=== PATIENT | male | born 1980 | race American Indian/Alaskan Native ===

== ENCOUNTER 2018-01-28 02:24 | Emergency (ER) | payer OTHER ==
[2018-01-28] MEDS ORDERED: Cyclobenzaprine 10 MG Tab PO ONE (02:25)
--- NOTE | 2018-01-28 03:07 | EDM.PDOC ---
ED HPI GENERAL MEDICAL PROBLEM - General Chief Complaint: Flank Pain Stated Complaint: SIDE/BACK PAIN [id number] Time Seen by Provider: 01/28/18 02:58 Source of Information: Reports: Patient History Limitations: Reports: No Limitations - History of Present Illness INITIAL COMMENTS - FREE TEXT/NARRATIVE: This 37 yo male patient reports to the ED with right flank pain. The patient reports his pain started on 01/27/18 in the morning and has been consistent since that time. The patient has not taken anything for temporary symptom relief. The patient also reports that he had 2 bowel movements on Sunday that were bloody. The patient reports that he has not had a bowel movement since Sunday. The patient denies any nausea or vomiting. Onset Date: 01/27/18 Duration: Constant Location: Reports: Back (right flank pain with movement) Quality: Reports: Ache, Dull, Throbbing Severity: Moderate Improves with: Reports: Rest Worsens with: Reports: Movement Right Flank Pain Score (Numeric/FACES): 6 - Related Data Allergies Allergy/AdvReac Type Severity Reaction Status Date / Time amoxicillin Allergy Hives Verified 01/28/18 02:36 Penicillins Allergy Hives Verified 01/28/18 02:36 Home Meds: Home Meds . [No Known Home Meds] 09/16/14 [History] Past Medical History - Past Health History Medical/Surgical History: Denies Medical/Surgical History - Infectious Disease History Infectious Disease History: Reports: Chicken Pox - Past Surgical History HEENT Surgical History: Reports: Tonsillectomy Social & Family History - Family History Family Medical History: Noncontributory - Tobacco Use Smoking Status *Q: Current Every Day Smoker Years of Tobacco use: 10 Packs/Tins Daily: 0.5 Second Hand Smoke Exposure: Yes - Caffeine Use Caffeine Use: Reports: Soda - Recreational Drug Use Recreational Drug Use: No ED ROS GENERAL - Review of Systems Review Of Systems: ROS reveals no pertinent complaints other than HPI. ED EXAM, RENAL/ - Physical Exam Exam: See Below Exam Limited By: No Limitations General Appearance: Alert, WD/WN, Mild Distress, Obese Eye Exam: Bilateral Eye: EOMI, Normal Inspection, PERRL Ears: Normal External Exam, Normal Canal, Hearing Grossly Normal, Normal TMs Nose: Normal Inspection, Normal Mucosa, No Blood Throat/Mouth: Normal Inspection, Normal Lips, Normal Teeth, Normal Gums, Normal Oropharynx, Normal Voice, No Airway Compromise Head: Atraumatic, Normocephalic Neck: Normal Inspection, Supple, Non-Tender, Full Range of Motion Respiratory/Chest: No Respiratory Distress, Lungs Clear, Normal Breath Sounds, No Accessory Muscle Use, Chest Non-Tender Cardiovascular: Normal Peripheral Pulses, Regular Rate, Rhythm, No Edema, No Gallop, No JVD, No Murmur, No Rub GI/Abdominal: Normal Bowel Sounds, Soft, Non-Tender, No Organomegaly, No Distention, No Abnormal Bruit, No Mass (Male) Exam: Deferred Rectal (Males) Exam: Deferred Back Exam: CVA Tenderness (R) Extremities: Normal Inspection, Normal Range of Motion, Non-Tender, Normal Capillary Refill, No Pedal Edema Neurological: Alert, Oriented, CN II-XII Intact, Normal Cognition, Normal Gait, Normal Reflexes, No Motor/Sensory Deficits Psychiatric: Normal Affect, Normal Mood Skin Exam: Warm, Dry, Intact, Normal Color, No Rash Lymphatic: No Adenopathy Course - Vital Signs Last Recorded V/S: Last Vital Signs Temp 36.8 C 01/28/18 02:37 Pulse 80 01/28/18 02:37 Resp 18 01/28/18 02:37 BP 137/85 01/28/18 02:37 Pulse Ox 98 01/28/18 02:37 - Orders/Labs/Meds Orders: Active Orders 24 hr Category Date Time Status Abdomen Pelvis wo Cont [CT] Urgent Exams 01/28/18 03:23 Ordered DRUG SCREEN URINE BIORAD [URCHEM] Stat Lab 01/28/18 02:56 Ordered UA W/MICROSCOPIC [URIN] Stat Lab 01/28/18 02:56 Ordered Labs: Laboratory Tests 01/28/18 01/28/18 01/28/18 Range/Units 03:05 03:05 03:09 WBC 11.3 H (5.0-10.0) 10^3/uL RBC 5.20 (4.6-6.2) 10^6/uL Hgb 15.2 (14.0-18.0) g/dL Hct 45.5 (40.0-54.0) % MCV 87.5 (80-100) fL MCH 29.2 (27.0-34.0) pg MCHC 33.4 (33.0-35.0) g/dL Plt Count 262 (150-450) 10^3/uL Neut % (Auto) 64.6 (42.2-75.2) % Lymph % (Auto) 24.8 (20.5-50.1) % Crenshaw % (Auto) 6.9 (2-8) % Eos % (Auto) 3.4 H (1.0-3.0) % Baso % (Auto) 0.3 (0.0-1.0) % Sodium (135-145) mmol/L Potassium (3.6-5.0) mmol/L Chloride (101-111) mmol/L Carbon Dioxide (21.0-31.0) mmol/L Anion Gap BUN (7-18) mg/dL Creatinine (0.6-1.3) mg/dL Est Cr Clr Drug Dosing mL/min Estimated GFR (MDRD) BUN/Creatinine Ratio Glucose (74-105) mg/dL Calcium (8.4-10.2) mg/dl Total Bilirubin (0.2-1.0) mg/dL AST (10-42) IU/L ALT (10-60) IU/L Alkaline Phosphatase (42-121) IU/L Total Protein (6.7-8.2) g/dl Albumin (3.2-5.5) g/dl Globulin Albumin/Globulin Ratio Urine Color Yellow (YELLOW) Urine Appearance Clear (CLEAR) Urine pH 6.0 (5.0-9.0) Ur Specific Secretary >= 1.030 (1.005-1.030) Urine Protein Negative (NEGATIVE) Urine Glucose (UA) Negative (NEGATIVE) Urine Ketones Negative (NEGATIVE) Urine Occult Blood Trace-intact H (NEGATIVE) Urine Nitrite Negative (NEGATIVE) Urine Bilirubin Negative (NEGATIVE) Urine Urobilinogen 0.2 (0.2-1.0) mg/dL Ur Leukocyte Esterase Negative (NEGATIVE) Urine RBC 0-5 /HPF Urine WBC 0-5 (0-5/HPF) /HPF Ur Epithelial Cells Rare /HPF Urine Bacteria Rare (0-FEW/HPF) /HPF Urine Mucus Few H /LPF Urine Opiates Screen Negative (NEGATIVE) Ur Oxycodone Screen Negative (NEGATIVE) Urine Methadone Screen Negative (NEGATIVE) Ur Barbiturates Screen Negative (NEGATIVE) U Tricyclic Antidepress Negative (NEGATIVE) Ur Phencyclidine Scrn Negative (NEGATIVE) Ur Amphetamine Screen Negative (NEGATIVE) U Methamphetamines Scrn Negative (NEGATIVE) Urine MDMA Screen Negative (NEGATIVE) U Benzodiazepines Scrn Negative (NEGATIVE) Urine Cocaine Screen Negative (NEGATIVE) U Marijuana (THC) Screen Negative (NEGATIVE) 01/28/18 Range/Units 03:09 WBC (5.0-10.0) 10^3/uL RBC (4.6-6.2) 10^6/uL Hgb (14.0-18.0) g/dL Hct (40.0-54.0) % MCV (80-100) fL MCH (27.0-34.0) pg MCHC (33.0-35.0) g/dL Plt Count (150-450) 10^3/uL Neut % (Auto) (42.2-75.2) % Lymph % (Auto) (20.5-50.1) % Crenshaw % (Auto) (2-8) % Eos % (Auto) (1.0-3.0) % Baso % (Auto) (0.0-1.0) % Sodium 140 (135-145) mmol/L Potassium 3.5 L (3.6-5.0) mmol/L Chloride 109 (101-111) mmol/L Carbon Dioxide 23.0 (21.0-31.0) mmol/L Anion Gap 11.5 BUN 20 H (7-18) mg/dL Creatinine 0.9 (0.6-1.3) mg/dL Est Cr Clr Drug Dosing 116.03 mL/min Estimated GFR (MDRD) > 60 BUN/Creatinine Ratio 22.22 Glucose 146 H (74-105) mg/dL Calcium 9.0 (8.4-10.2) mg/dl Total Bilirubin 0.3 (0.2-1.0) mg/dL AST 19 (10-42) IU/L ALT 19 (10-60) IU/L Alkaline Phosphatase 106 (42-121) IU/L Total Protein 7.4 (6.7-8.2) g/dl Albumin 3.9 (3.2-5.5) g/dl Globulin 3.5 Albumin/Globulin Ratio 1.11 Urine Color (YELLOW) Urine Appearance (CLEAR) Urine pH (5.0-9.0) Ur Specific Secretary (1.005-1.030) Urine Protein (NEGATIVE) Urine Glucose (UA) (NEGATIVE) Urine Ketones (NEGATIVE) Urine Occult Blood (NEGATIVE) Urine Nitrite (NEGATIVE) Urine Bilirubin (NEGATIVE) Urine Urobilinogen (0.2-1.0) mg/dL Ur Leukocyte Esterase (NEGATIVE) Urine RBC /HPF Urine WBC (0-5/HPF) /HPF Ur Epithelial Cells /HPF Urine Bacteria (0-FEW/HPF) /HPF Urine Mucus /LPF Urine Opiates Screen (NEGATIVE) Ur Oxycodone Screen (NEGATIVE) Urine Methadone Screen (NEGATIVE) Ur Barbiturates Screen (NEGATIVE) U Tricyclic Antidepress (NEGATIVE) Ur Phencyclidine Scrn (NEGATIVE) Ur Amphetamine Screen (NEGATIVE) U Methamphetamines Scrn (NEGATIVE) Urine MDMA Screen (NEGATIVE) U Benzodiazepines Scrn (NEGATIVE) Urine Cocaine Screen (NEGATIVE) U Marijuana (THC) Screen (NEGATIVE) Meds: Medications Discontinued Medications Generic Name Dose Route Start Last Admin Trade Name Freq PRN Reason Stop Dose Admin Sodium Chloride 1,000 mls @ 999 mls/hr 01/28/18 03:27 01/28/18 03:37 Normal Saline IV 01/28/18 04:27 999 mls/hr .BOLUS ONE Administration Ketorolac Tromethamine 30 mg 01/28/18 05:01 Toradol IVPUSH 01/28/18 05:02 ONETIME ONE Departure - Departure Time of Disposition: 05:07 Disposition: Home, Self-Care 01 Condition: Fair Clinical Impression: Low back strain Qualifiers: Encounter type: initial encounter Qualified Code(s): S39.012A - Strain of muscle, fascia and tendon of lower back, initial encounter - Discharge Information Instructions: Low Back Sprain Forms: ED Department Discharge Care Plan Goals: The patient was advised of the examination, lab and CT results during the visit. The patient was given an IV dose of Toradol. The patient was discharged with a Flexeril (10 mg) #1 to take at bedtime. The patient was also given a script for Toradol (10 mg) #20 to take 1 by mouth every 6 hours and Flexeril ( 10 mg) #10 to take 1 by mouth at bedtime as needed. If the patient has any additional symptoms or concerns, the patient should follow-up with his primary care facility or return to the emergency department. - My Orders Last 24 Hours: My Active Orders 01/28/18 02:56 DRUG SCREEN URINE BIORAD [URCHEM] Stat UA W/MICROSCOPIC [URIN] Stat 01/28/18 03:23 Abdomen Pelvis wo Cont [CT] Urgent - Assessment/Plan Last 24 Hours: My Active Orders 01/28/18 02:56 DRUG SCREEN URINE BIORAD [URCHEM] Stat UA W/MICROSCOPIC [URIN] Stat 01/28/18 03:23 Abdomen Pelvis wo Cont [CT] Urgent
[2018-01-28] MEDS ORDERED: Sodium Chloride 0.9% 1,000 ML IV ONE (03:27)
[2018-01-28 03:34] LABS: CHLORIDE,CL 109 mmol/L (101-111); SODIUM,NA 140 mmol/L (135-145)
[2018-01-28] MEDS ORDERED: Ketorolac 30 MG/ML SDV IVPUSH ONE (05:01)
[2018-01-28] MEDS ORDERED: Cyclobenzaprine 10 MG Tab ONE (05:35)
== END 2018-01-28 05:37 | disposition home or self-care (01) ==
LOC: DL.ED 02:24
DX: S39.012A Strain of muscle, fascia and tendon of lower back, initial encounter (principal); F17.210 Nicotine dependence, cigarettes, uncomplicated; Z88.0 Allergy status to penicillin; Z88.1 Allergy status to other antibiotic agents; Z87.891 Personal history of nicotine dependence; X58.XXXA Exposure to other specified factors, initial encounter
CPT/HCPCS: 36415; 74176; 80053; 80305; 81001; 85025; 96360; 99284; A9270; J1885; J7030

== ENCOUNTER 2018-06-10 21:37 | Emergency (ER) | payer OTHER ==
[2018-06-10] MEDS ORDERED: Sodium Chloride 0.9% 10 ML Syringe FLUSH PRN (21:57)
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
[2018-06-10 22:31] LABS: ANION GAP 9.5; CHLORIDE,CL 103 mmol/L (101-111); SODIUM,NA 136 mmol/L (135-145)
== END 2018-06-11 03:25 | disposition home or self-care (01) ==
LOC: DL.ED 21:37
DX: R07.9 Chest pain, unspecified (principal); F17.210 Nicotine dependence, cigarettes, uncomplicated; Z88.1 Allergy status to other antibiotic agents; Z88.0 Allergy status to penicillin
CPT/HCPCS: 36415; 71045; 80053; 84484; 85025; 85610; 93005; 99285; J7050

== ENCOUNTER 2019-08-26 22:39 | Emergency (ER) | payer BC, OTHER ==
[2019-08-26] MEDS ORDERED: Acetaminophen/HYDROcodone 325-10 MG Tab PO ONE (22:40)
[2019-08-26] MEDS ORDERED: Sodium Chloride 0.9% 1,000 ML IV ONE (22:58)
[2019-08-26] MEDS ORDERED: Iopamidol 612 MG/ML 100 ML Bottle IVPUSH ONE (23:26)
[2019-08-26 23:29] LABS: ANION GAP 11.5; CHLORIDE,CL 107 mmol/L (101-111); SODIUM,NA 138 mmol/L (135-145)
--- NOTE | 2019-08-26 23:39 | EDM.PDOC ---
ED HPI GENERAL MEDICAL PROBLEM - General Chief Complaint: Skin Complaint Stated Complaint: BOIL Time Seen by Provider: 08/26/19 22:55 Source of Information: Reports: Patient History Limitations: Reports: No Limitations - History of Present Illness INITIAL COMMENTS - FREE TEXT/NARRATIVE: ED with c/o boil on stomach draining. Noticed area on Sunday, greater in size tonight. Area popped and draining, increased pain. 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 "Borderline " diabeticNo known fevers. No nausea or vomiting. Suprapubic Pain Score (Numeric/FACES): 10 - Related Data Allergies Allergy/AdvReac Type Severity Reaction Status Date / Time amoxicillin Allergy Hives Verified 08/26/19 22:42 Penicillins Allergy Hives Verified 08/26/19 22:42 Home Meds: Home Meds . [No Known Home Meds] 09/16/14 [History] Past Medical History - Past Health History Medical/Surgical History: Denies Medical/Surgical History Endocrine/Metabolic History: Reports: Diabetes, Type II Other Endocrine/Metabolic History: Borderline DM - Infectious Disease History Infectious Disease History: Reports: Chicken Pox, MRSA - Past Surgical History HEENT Surgical History: Reports: Tonsillectomy Other Musculoskeletal Surgeries/Procedures:: right knee fracture. Left femur surgery Social & Family History - Family History Family Medical History: Noncontributory - Tobacco Use Smoking Status *Q: Current Every Day Smoker Years of Tobacco use: 25 Packs/Tins Daily: 0.5 - Caffeine Use Caffeine Use: Reports: Soda - Recreational Drug Use Recreational Drug Use: No ED ROS GENERAL - Review of Systems Review Of Systems: Comprehensive ROS is negative, except as noted in HPI. ED EXAM, SKIN/RASH Exam: See Below Exam Limited By: No Limitations General Appearance: Alert, Mild Distress, Obese Eye Exam: Bilateral Eye: EOMI Ears: Normal External Exam Nose: Normal Inspection Throat/Mouth: Normal Inspection Head: Atraumatic, Other Neck: Normal Inspection Respiratory/Chest: No Respiratory Distress, Lungs Clear Cardiovascular: Normal Peripheral Pulses, Regular Rate, Rhythm GI/Abdominal: Normal Bowel Sounds, Soft, Tender (lower mid) Extremities: Normal Range of Motion Neurological: Alert, Oriented Psychiatric: Normal Mood Skin: Warm, Wound/Incision (abscess mid loer abdomen at waist fold. 33 open area large amount thick brown drainage, Mild redness. Indurated area 2x2 cm. ) Course - Vital Signs Last Recorded V/S: Last Vital Signs Temp 99.5 F 08/27/19 01:00 Pulse 83 08/27/19 01:00 Resp 16 08/27/19 01:00 BP 115/52 L 08/27/19 01:00 Pulse Ox 97 08/27/19 01:00 - Orders/Labs/Meds Orders: Active Orders 24 hr Category Date Time Status Abdomen Pelvis w Cont [CT] Urgent Exams 08/26/19 23:26 Taken CULTURE WOUND + SMEAR [RM] Stat Lab 08/26/19 22:48 Results Labs: Laboratory Tests 08/26/19 08/26/19 08/26/19 Range/Units 23:00 23:00 23:00 WBC 16.1 H (5.0-10.0) 10^3/uL RBC 5.25 (4.6-6.2) 10^6/uL Hgb 15.6 (14.0-18.0) g/dL Hct 45.5 (40.0-54.0) % MCV 86.7 (80-100) fL MCH 29.7 (27.0-34.0) pg MCHC 34.3 (33.0-35.0) g/dL Plt Count 255 (150-450) 10^3/uL Neut % (Auto) 76.9 H (42.2-75.2) % Lymph % (Auto) 16.3 L (20.5-50.1) % [place] % (Auto) 6.0 (2-8) % Eos % (Auto) 0.6 L (1.0-3.0) % Baso % (Auto) 0.2 (0.0-1.0) % Sodium 138 (135-145) mmol/L Potassium 3.5 L (3.6-5.0) mmol/L Chloride 107 (101-111) mmol/L Carbon Dioxide 23.0 (21.0-31.0) mmol/L Anion Gap 11.5 BUN 17 (7-18) mg/dL Creatinine 1.1 (0.6-1.3) mg/dL Est Cr Clr Drug Dosing 94.02 mL/min Estimated GFR (MDRD) > 60 BUN/Creatinine Ratio 15.45 Glucose 126 H (74-105) mg/dL Lactic Acid 1.0 (0.5-2.2) mmol/L Calcium 8.7 (8.4-10.2) mg/dl Total Bilirubin 0.7 (0.2-1.0) mg/dL AST 17 (10-42) IU/L ALT 18 (10-60) IU/L Alkaline Phosphatase 92 (42-121) IU/L Total Protein 7.6 (6.7-8.2) g/dl Albumin 4.0 (3.2-5.5) g/dl Globulin 3.6 Albumin/Globulin Ratio 1.11 Meds: Medications Discontinued Medications Generic Name Dose Route Start Last Admin Trade Name Freq PRN Reason Stop Dose Admin Hydrocodone Bitart/Acetaminophen Confirm 08/27/19 00:40 08/27/19 00:47 [place] 325-10 Mg Administered 08/27/19 00:41 Not Given Dose 2 tab .ROUTE .STK-MED ONE Diphenhydramine HCl 25 mg 08/27/19 00:51 08/27/19 00:57 Benadryl PO 08/27/19 00:52 25 mg ONETIME ONE Administration Sodium Chloride 1,000 mls @ 999 mls/hr 08/26/19 22:58 08/26/19 23:04 Normal Saline IV 08/26/19 23:58 150 mls/hr .BOLUS ONE Administration Vancomycin HCl 1,500 mg/ 500 mls @ 333.333 mls/hr 08/26/19 22:58 08/26/19 23: 07 Sodium Chloride IV 08/27/19 00:27 333.333 mls/hr ONETIME ONE Administration Iopamidol 100 ml 08/26/19 23:26 Isovue-300 (61%) IVPUSH 08/26/19 23:27 ONETIME ONE Departure - Departure Time of Disposition: 23:46 Disposition: Home, Self-Care 01 Condition: Good Clinical Impression: Abscess - Discharge Information *PRESCRIPTION DRUG MONITORING PROGRAM REVIEWED*: No *COPY OF PRESCRIPTION DRUG MONITORING REPORT IN PATIENT MARIO ALBERTO: No Instructions: Skin Abscess Referrals: PCP,None [Ordering Only Provider] - Forms: ED Department Discharge Additional Instructions: doxycycline 100mg one twice daily for 10 days warm soak to area cover area with dressing follow up if increased redness, swelling , fever Follow up with Dr Johnson [phone] tylenol 650mg alternate with ibuprofen 600mg every 4 hours as needed for discomfort Sepsis Event Note - Evaluation Sepsis Screening Result: No Definite Risk - Focused Exam Vital Signs: Vital Signs Temp Pulse Resp BP Pulse Ox 08/27/19 01:00 99.5 F 83 16 115/52 L 97 08/26/19 22:51 99.8 F 103 H 20 119/84 98 Date Exam was Performed: 08/27/19 Time Exam was Performed: 01:47 - My Orders Last 24 Hours: My Active Orders 08/26/19 22:48 CULTURE WOUND + SMEAR [RM] Stat 08/26/19 23:26 Abdomen Pelvis w Cont [CT] Urgent - Assessment/Plan Last 24 Hours: My Active Orders 08/26/19 22:48 CULTURE WOUND + SMEAR [RM] Stat 08/26/19 23:26 Abdomen Pelvis w Cont [CT] Urgent
[2019-08-27] MEDS ORDERED: Acetaminophen/HYDROcodone 325-10 MG Tab ONE (00:40)
[2019-08-27] MEDS ORDERED: diphenhydrAMINE 25 MG Tab PO ONE (00:51)
== END 2019-08-27 01:07 | disposition home or self-care (01) ==
LOC: DL.ED 22:39
DX: L02.211 Cutaneous abscess of abdominal wall (principal); E11.9 Type 2 diabetes mellitus without complications; F17.210 Nicotine dependence, cigarettes, uncomplicated; Z88.0 Allergy status to penicillin
CPT/HCPCS: 36415; 74177; 80053; 83605; 85025; 87070; 87077; 87186; 87205; 96365; 96366; 99283; A9270; J3370; J7030; J7040; Q9967

== ENCOUNTER 2021-03-23 21:29 | Emergency (ER) | payer BC, OTHER ==
[2021-03-23] MEDS ORDERED: Doxycycline Monohydrate 100 MG Cap PO ONE (22:38)
--- NOTE | 2021-03-23 22:38 | EDM.PDOC ---
ED HPI GENERAL MEDICAL PROBLEM - General Chief Complaint: Skin Complaint Stated Complaint: LEFT SIDE IN MIDDLE WAIST, BOIL. PER PT Time Seen by Provider: 03/23/21 22:30 Source of Information: Reports: Patient History Limitations: Reports: No Limitations - History of Present Illness INITIAL COMMENTS - FREE TEXT/NARRATIVE: Boil on waistline Lower Abdomen Pain Score (Numeric/FACES): 7 - Related Data Allergies Allergy/AdvReac Type Severity Reaction Status Date / Time amoxicillin Allergy Hives Verified 08/26/19 22:42 Penicillins Allergy Hives Verified 08/26/19 22:42 Home Meds: Home Meds Aspirin 03/23/21 [History] Cholecalciferol (Vitamin D3) [Vitamin D] 03/23/21 [History] lisinopriL [Lisinopril] 03/23/21 [History] metFORMIN [Glucophage] 03/23/21 [History] Past Medical History - Past Health History Medical/Surgical History: Denies Medical/Surgical History HEENT History: Reports: None Cardiovascular History: Reports: None Respiratory History: Reports: None Gastrointestinal History: Reports: None Genitourinary History: Reports: None Neurological History: Reports: None Psychiatric History: Reports: None Endocrine/Metabolic History: Reports: Diabetes, Type II Other Endocrine/Metabolic History: Borderline DM Hematologic History: Reports: None Immunologic History: Reports: None Oncologic (Cancer) History: Reports: None - Infectious Disease History Infectious Disease History: Reports: Chicken Pox, MRSA - Past Surgical History Head Surgeries/Procedures: Reports: None HEENT Surgical History: Reports: Tonsillectomy Other Musculoskeletal Surgeries/Procedures:: right knee fracture. Left femur surgery Social & Family History - Family History Family Medical History: No Pertinent Family History - Tobacco Use Tobacco Use Status *Q: Current Every Day Tobacco User Years of Tobacco use: 15 Packs/Tins Daily: 0.2 - Caffeine Use Caffeine Use: Reports: Soda - Recreational Drug Use Recreational Drug Use: No ED ROS GENERAL - Review of Systems Review Of Systems: Comprehensive ROS is negative, except as noted in HPI. ED EXAM, SKIN/RASH Exam: See Below Exam Limited By: No Limitations General Appearance: Alert, No Apparent Distress Eye Exam: Bilateral Eye: EOMI Ears: Normal External Exam Throat/Mouth: Normal Oropharynx Head: Atraumatic, Normocephalic Respiratory/Chest: Normal Breath Sounds Cardiovascular: Regular Rate, Rhythm Extremities: Normal Range of Motion Neurological: Alert, Oriented, Normal Cognition Skin: Warm, Dry, Wound/Incision (abscess mid abdominal in fold, punctate center, no redness) ED SKIN PROCEDURES - I&D Skin Prep: Providone-Iodine (Betadine) Area Incised With: Needle Drainage: Purulent, Moderate Amount Probed to Break Up Loculations: No Sterile Dressinx4(s) Complications: No Course - Vital Signs Last Recorded V/S: Last Vital Signs Temp 98.4 F 03/23/21 21:43 Pulse 76 03/23/21 21:43 Resp 20 03/23/21 21:43 BP 122/67 03/23/21 21:43 Pulse Ox 99 03/23/21 21:43 Departure - Departure Time of Disposition: 22:40 Disposition: Home, Self-Care 01 Condition: Good Clinical Impression: Abscess - Discharge Information *PRESCRIPTION DRUG MONITORING PROGRAM REVIEWED*: No *COPY OF PRESCRIPTION DRUG MONITORING REPORT IN PATIENT MARIO ALBERTO: No Instructions: Skin Abscess Additional Instructions: warm soak twice daily keep area clean and dry cover with dressing if draining Clinic recheck sunday Follow up if redness swelling or fever doxycycline 100mg one twice daily x 10 days Sepsis Event Note (ED) - Evaluation Sepsis Screening Result: No Definite Risk - Focused Exam Vital Signs: Vital Signs Temp Pulse Resp BP Pulse Ox 03/23/21 21:43 98.4 F 76 20 122/67 99
== END 2021-03-23 22:47 | disposition home or self-care (01) ==
LOC: DL.ED 21:29
DX: L02.211 Cutaneous abscess of abdominal wall (principal); Z72.0 Tobacco use; E11.9 Type 2 diabetes mellitus without complications; Z79.82 Long term (current) use of aspirin; Z79.84 Long term (current) use of oral hypoglycemic drugs; Z88.0 Allergy status to penicillin
CPT/HCPCS: 10060; 99282; A9270; 99283

== ENCOUNTER 2021-05-13 21:07 | Emergency (ER) | payer BC, OTHER ==
[2021-05-13] MEDS ORDERED: cefTRIAXone 250 MG, Lidocaine 1% 0.9 ML IM ONE ×2 (21:24)
[2021-05-13] MEDS ORDERED: Azithromycin 250 MG Tab PO ONE (21:24)
--- NOTE | 2021-05-13 21:26 | EDM.PDOC ---
ED HPI GENERAL MEDICAL PROBLEM - General Chief Complaint: Genitourinary Problem Stated Complaint: PAIN IN LOWER REGION... Time Seen by Provider: 05/13/21 21:20 - History of Present Illness INITIAL COMMENTS - FREE TEXT/NARRATIVE: Pt is here for possible STD. He had intercourse with someone on Sunday who told him that she was tested and clean so he did not use protection. He was tested yesterday at the clinic, but has not heard the results. Today, he started to get more burning and discomfort at the tip of his penis and pressure so he has to urinate. He denies any warts or lesions in his private area. No testicular pain or lower abdominal pain. He has not had this before. Onset: Today - Related Data Allergies Allergy/AdvReac Type Severity Reaction Status Date / Time amoxicillin Allergy Hives Verified 08/26/19 22:42 Penicillins Allergy Hives Verified 08/26/19 22:42 Home Meds: Home Meds Aspirin 03/23/21 [History] Cholecalciferol (Vitamin D3) [Vitamin D] 03/23/21 [History] lisinopriL [Lisinopril] 03/23/21 [History] metFORMIN [Glucophage] 03/23/21 [History] Past Medical History - Past Health History Medical/Surgical History: Denies Medical/Surgical History HEENT History: Reports: None Cardiovascular History: Reports: None Respiratory History: Reports: None Gastrointestinal History: Reports: None Genitourinary History: Reports: None Neurological History: Reports: None Psychiatric History: Reports: None Endocrine/Metabolic History: Reports: Diabetes, Type II Other Endocrine/Metabolic History: Borderline DM Hematologic History: Reports: None Immunologic History: Reports: None Oncologic (Cancer) History: Reports: None - Infectious Disease History Infectious Disease History: Reports: Chicken Pox, MRSA - Past Surgical History Head Surgeries/Procedures: Reports: None HEENT Surgical History: Reports: Tonsillectomy Other Musculoskeletal Surgeries/Procedures:: right knee fracture. Left femur surgery Social & Family History - Family History Family Medical History: No Pertinent Family History - Caffeine Use Caffeine Use: Reports: Soda ED ROS GENERAL - Review of Systems Review Of Systems: Comprehensive ROS is negative, except as noted in HPI. ED EXAM, RENAL/ - Physical Exam Exam: See Below Exam Limited By: No Limitations General Appearance: Alert, WD/WN, No Apparent Distress Eye Exam: Bilateral Eye: Normal Inspection Ears: Normal External Exam Throat/Mouth: Normal Voice, No Airway Compromise Head: Atraumatic, Normocephalic Neck: Supple, Non-Tender Respiratory/Chest: No Respiratory Distress, Lungs Clear, Normal Breath Sounds, No Accessory Muscle Use Cardiovascular: Normal Peripheral Pulses, Regular Rate, Rhythm, No Murmur GI/Abdominal: Soft, Non-Tender (Male) Exam: Deferred (by pt) Rectal (Males) Exam: Deferred Back Exam: Normal Inspection, Full Range of Motion Extremities: Normal Inspection, Normal Range of Motion, No Pedal Edema Neurological: Alert, Oriented, Normal Cognition, No Motor/Sensory Deficits Psychiatric: Normal Affect, Normal Mood Skin Exam: Warm, Dry, Intact, Normal Color, No Rash Course - Re-Assessments/Exams Free Text/Narrative Re-Assessment/Exam: Reviewed labs with pt and . Pt feeling better after IV fluids and is ready to go home. CT head and CXR were unremarkable. 05/13/21 22:26 Departure - Departure Time of Disposition: 22:24 Disposition: Home, Self-Care 01 Condition: Good Clinical Impression: Dehydration - Discharge Information *PRESCRIPTION DRUG MONITORING PROGRAM REVIEWED*: Not Applicable *COPY OF PRESCRIPTION DRUG MONITORING REPORT IN PATIENT MARIO ALBERTO: Not Applicable Instructions: Dehydration, Adult, [id number]-sm-[id number] Forms: ED Department Discharge Additional Instructions: If symptoms return or worsen, call/return to the ER Keep upcoming appointments with your specialists Follow up with your primary care provider in 3-5 days.
== END 2021-05-13 22:43 | disposition home or self-care (01) ==
LOC: DL.ED 21:07
DX: E86.0 Dehydration (principal); E11.9 Type 2 diabetes mellitus without complications; Z88.0 Allergy status to penicillin; Z79.82 Long term (current) use of aspirin; Z79.84 Long term (current) use of oral hypoglycemic drugs; Z79.899 Other long term (current) drug therapy
CPT/HCPCS: 81003; 96372; 99283; A9270-GY; J0696

== ENCOUNTER 2021-06-20 15:55 | Emergency (ER) | payer BC, OTHER ==
[2021-06-20] MEDS ORDERED: Sodium Chloride 0.9% 10 ML Syringe FLUSH PRN ×2 (17:21→18:29)
[2021-06-20 17:51] LABS: AMPHETAMINES,URINE NEGATIVE (NEGATIVE); BARBITURATES,URINE NEGATIVE (NEGATIVE); BENZODIAZEPINE,URINE NEGATIVE (NEGATIVE); MDMA (ECSTASY), URINE NEGATIVE (NEGATIVE); METHADONE,URINE NEGATIVE (NEGATIVE); METHAMPHETAMINES,URINE NEGATIVE (NEGATIVE); OPIATES,URINE NEGATIVE (NEGATIVE); OXYCODONE,URINE NEGATIVE (NEGATIVE); PHENCYCLIDINE,URINE NEGATIVE (NEGATIVE); TCA,URINE NEGATIVE (NEGATIVE)
[2021-06-20 18:03] LABS: ANION GAP 15.6 mEq/L (7-13); CHLORIDE,CL 105 mmol/L (98-107); SODIUM,NA 141 mmol/L (136-145)
--- NOTE | 2021-06-20 18:03 | EDM.PDOC ---
<Yusuf Morales Ansley - Last Filed: 06/20/21 18:47> ED HPI GENERAL MEDICAL PROBLEM - General Chief Complaint: Abdominal Pain Stated Complaint: GALLBLADDER INFLAMATION Time Seen by Provider: 06/20/21 17:25 Source of Information: Reports: Patient History Limitations: Reports: No Limitations - History of Present Illness INITIAL COMMENTS - FREE TEXT/NARRATIVE: 40 y/o M c/o upper abd pn, 3/10, sharp in nature diffuse over the upper abd, 6/10 and worse when tries to sit up. No trauma to the area. Pn started Sunday. No pain after eating. He denies sweating, NV, fever, cough, chills, drugs, etoh, cp, db, pelvic pn, extremity pn, constipation, difficulty voiding Duration: Day(s): Location: Reports: Abdomen Quality: Reports: Sharp Upper Abdomen Pain Score (Numeric/FACES): 2 - Related Data Allergies Allergy/AdvReac Type Severity Reaction Status Date / Time amoxicillin Allergy Hives Verified 06/20/21 17:19 Penicillins Allergy Hives Verified 06/20/21 17:19 Home Meds: Home Meds Aspirin 81 mg PO DAILY 03/23/21 [History] Cholecalciferol (Vitamin D3) [Vitamin D] 25 mcg PO DAILY 03/23/21 [History] lisinopriL [Lisinopril] 5 mg PO DAILY 03/23/21 [History] metFORMIN [Glucophage] 500 mg PO DAILY 03/23/21 [History] Albuterol Sulfate [Proair Hfa] 2 puff IH .Q4-6H PRN 06/20/21 [History] Famotidine 20 mg PO BID 06/20/21 [History] Hydrophilic Ointment [Aquaphilic Ointment] 1 gm TOP DAILY 06/20/21 [History] Sennosides/Docusate Sodium [Docusate Sodium-Sennosides Tab] 1 each PO DAILY 06/20/21 [History] Sildenafil Citrate [Viagra] 100 mg PO ASDIRECTED 06/20/21 [History] Past Medical History - Past Health History Medical/Surgical History: Denies Medical/Surgical History HEENT History: Reports: None Cardiovascular History: Reports: None Respiratory History: Reports: None Gastrointestinal History: Reports: GERD Genitourinary History: Reports: None, STD Other Genitourinary History: possible std exposure Neurological History: Reports: None Psychiatric History: Reports: None Endocrine/Metabolic History: Reports: Diabetes, Type II Other Endocrine/Metabolic History: Borderline DM Hematologic History: Reports: None Immunologic History: Reports: None Oncologic (Cancer) History: Reports: None - Infectious Disease History Infectious Disease History: Reports: Chicken Pox, MRSA - Past Surgical History Head Surgeries/Procedures: Reports: None HEENT Surgical History: Reports: Tonsillectomy Other Musculoskeletal Surgeries/Procedures:: right knee fracture. Left femur surgery Social & Family History - Family History Family Medical History: No Pertinent Family History - Tobacco Use Tobacco Use Status *Q: Current Every Day Tobacco User Years of Tobacco use: 25 Packs/Tins Daily: 0.5 - Caffeine Use Caffeine Use: Reports: None - Recreational Drug Use Recreational Drug Use: No ED ROS GENERAL - Review of Systems Review Of Systems: Comprehensive ROS is negative, except as noted in HPI. ED EXAM, GI/ABD - Physical Exam Exam: See Below General Appearance: Alert, No Apparent Distress Throat/Mouth: Normal Inspection, Normal Lips, Normal Teeth, Normal Gums, Normal Oropharynx, Normal Voice, No Airway Compromise Head: Atraumatic, Normocephalic Neck: Normal Inspection, Supple, Non-Tender, Full Range of Motion Respiratory/Chest: No Respiratory Distress, Lungs Clear, Normal Breath Sounds, No Accessory Muscle Use, Chest Non-Tender Cardiovascular: Normal Peripheral Pulses, Regular Rate, Rhythm, No Edema, No Gallop, No JVD, No Murmur, No Rub GI/Abdominal Exam: Soft, Tender (tender upper quadrants positive murphys sign) (Male) Exam: Deferred Rectal (Males) Exam: Deferred Back Exam: Normal Inspection, Full Range of Motion, NT Extremities: Normal Inspection, Normal Range of Motion, Non-Tender, Normal Capillary Refill, No Pedal Edema Neurological: Alert, Oriented, CN II-XII Intact, Normal Cognition, Normal Gait, Normal Reflexes, No Motor/Sensory Deficits Psychiatric: Normal Affect, Normal Mood Course - Re-Assessments/Exams Free Text/Narrative Re-Assessment/Exam: 06/20/21 18:47 care taken over by Sherine Vásquez NP at shift change Departure - Departure Disposition: Home, Self-Care 01 Clinical Impression: Hiatal hernia, Fatty liver Constipation Qualifiers: Constipation type: slow transit constipation Qualified Code(s): K59.01 - Slow transit constipation Hyperglycemia due to type 2 diabetes mellitus Qualifiers: Diabetes mellitus snf insulin use: without snf use Qualified Code(s): E11.65 - Type 2 diabetes mellitus with hyperglycemia - Discharge Information Instructions: Hernia, Adult, Constipation, Adult Referrals: PCP,None [Primary Care Provider] - Forms: ED Department Discharge Additional Instructions: 1.) You may take MiraLAX, or similar product tonight as well as tomorrow morning should you not experience results. 2.) Increase water intake. 3.) Increase fresh fruit/vegetable and fiber intake. 4.) Consider taking a stool softener daily should constipation be a regular occurrence despite dietary changes. 5.) Follow up with your primary care provider regarding today's visit. <Lakeisha Alatorre - Last Filed: 06/21/21 02:16> Course - Vital Signs Last Recorded V/S: Last Vital Signs Temp 98.9 F 06/20/21 20:30 Pulse 78 06/20/21 20:30 Resp 20 06/20/21 20:30 BP 128/75 06/20/21 20:30 Pulse Ox 97 06/20/21 20:30 - Orders/Labs/Meds Orders: Active Orders 24 hr Category Date Time Status Peripheral IV Insertion Adult [OM.PC] Routine Oth 06/20/21 17:20 Ordered Peripheral IV Insertion Adult [OM.PC] Routine Oth 06/20/21 18:29 Ordered Labs: Laboratory Tests 06/20/21 06/20/21 06/20/21 Range/Units 17:30 17:30 17:30 WBC 11.0 H (5.0-10.0) 10^3/uL RBC 5.18 (4.6-6.2) 10^6/uL Hgb 15.2 (14.0-18.0) g/dL Hct 45.5 (40.0-54.0) % MCV 87.8 (80-100) fL MCH 29.3 (27.0-34.0) pg MCHC 33.4 (33.0-35.0) g/dL Plt Count 297 (150-450) 10^3/uL Neut % (Auto) 67.3 (42.2-75.2) % Lymph % (Auto) 23.8 (20.5-50.1) % [place] % (Auto) 6.6 (2-8) % Eos % (Auto) 2.1 (1.0-3.0) % Baso % (Auto) 0.2 (0.0-1.0) % Sodium 141 (136-145) mmol/L Potassium 3.6 (3.5-5.1) mmol/L Chloride 105 (98-107) mmol/L Carbon Dioxide 24 (21-32) mmol/L Anion Gap 15.6 H (7-13) mEq/L BUN 17 (7-18) mg/dL Creatinine 1.10 (0.70-1.30) mg/dL Est Cr Clr Drug Dosing 92.17 mL/min Estimated GFR (MDRD) > 60 BUN/Creatinine Ratio 15.5 (No establ ref range) Glucose 115 H (70-99) mg/dL Lactic Acid 0.8 (0.4-2.0) mmol/L Calcium 8.9 (8.5-10.1) mg/dL Phosphorus 3.6 (2.6-4.7) mg/dL Total Bilirubin 0.3 (0.2-1.0) mg/dL AST 14 L (15-37) U/L ALT 35 (16-63) U/L Alkaline Phosphatase 113 (46-116) U/L Total Protein 8.2 (6.4-8.2) g/dL Albumin 4.0 (3.4-5.0) g/dL Globulin 4.2 Albumin/Globulin Ratio 1.0 Amylase 27 (25-115) U/L Lipase 98 (73-393) U/L TSH, Ultra Sensitive 1.70 (0.36-3.74) uIU/mL Urine Color (YELLOW) Urine Appearance (CLEAR) Urine pH (5.0-9.0) Ur Specific [place] (1.005-1.030) Urine Protein (NEGATIVE) Urine Glucose (UA) (NEGATIVE) Urine Ketones (NEGATIVE) Urine Occult Blood (NEGATIVE) Urine Nitrite (NEGATIVE) Urine Bilirubin (NEGATIVE) Urine Urobilinogen (0.2-1.0) mg/dL Ur Leukocyte Esterase (NEGATIVE) Urine Opiates Screen (NEGATIVE) Ur Oxycodone Screen (NEGATIVE) Urine Methadone Screen (NEGATIVE) Ur Barbiturates Screen (NEGATIVE) U Tricyclic Antidepress (NEGATIVE) Ur Phencyclidine Scrn (NEGATIVE) Ur Amphetamine Screen (NEGATIVE) U Methamphetamines Scrn (NEGATIVE) Urine MDMA Screen (NEGATIVE) U Benzodiazepines Scrn (NEGATIVE) Urine Cocaine Screen (NEGATIVE) U Marijuana (THC) Screen (NEGATIVE) SARS-CoV-2 RNA (MARTÍN) (NEGATIVE) 06/20/21 06/20/21 06/20/21 Range/Units 17:35 17:35 18:04 WBC (5.0-10.0) 10^3/uL RBC (4.6-6.2) 10^6/uL Hgb (14.0-18.0) g/dL Hct (40.0-54.0) % MCV (80-100) fL MCH (27.0-34.0) pg MCHC (33.0-35.0) g/dL Plt Count (150-450) 10^3/uL Neut % (Auto) (42.2-75.2) % Lymph % (Auto) (20.5-50.1) % [place] % (Auto) (2-8) % Eos % (Auto) (1.0-3.0) % Baso % (Auto) (0.0-1.0) % Sodium (136-145) mmol/L Potassium (3.5-5.1) mmol/L Chloride (98-107) mmol/L Carbon Dioxide (21-32) mmol/L Anion Gap (7-13) mEq/L BUN (7-18) mg/dL Creatinine (0.70-1.30) mg/dL Est Cr Clr Drug Dosing mL/min Estimated GFR (MDRD) BUN/Creatinine Ratio (No establ ref range) Glucose (70-99) mg/dL Lactic Acid (0.4-2.0) mmol/L Calcium (8.5-10.1) mg/dL Phosphorus (2.6-4.7) mg/dL Total Bilirubin (0.2-1.0) mg/dL AST (15-37) U/L ALT (16-63) U/L Alkaline Phosphatase (46-116) U/L Total Protein (6.4-8.2) g/dL Albumin (3.4-5.0) g/dL Globulin Albumin/Globulin Ratio Amylase (25-115) U/L Lipase (73-393) U/L TSH, Ultra Sensitive (0.36-3.74) uIU/mL Urine Color Yellow (YELLOW) Urine Appearance Slightly cloudy (CLEAR) Urine pH 5.5 (5.0-9.0) Ur Specific [place] >= 1.030 (1.005-1.030) Urine Protein Negative (NEGATIVE) Urine Glucose (UA) Negative (NEGATIVE) Urine Ketones Negative (NEGATIVE) Urine Occult Blood Negative (NEGATIVE) Urine Nitrite Negative (NEGATIVE) Urine Bilirubin Small H (NEGATIVE) Urine Urobilinogen 1.0 (0.2-1.0) mg/dL Ur Leukocyte Esterase Negative (NEGATIVE) Urine Opiates Screen Negative (NEGATIVE) Ur Oxycodone Screen Negative (NEGATIVE) Urine Methadone Screen Negative (NEGATIVE) Ur Barbiturates Screen Negative (NEGATIVE) U Tricyclic Antidepress Negative (NEGATIVE) Ur Phencyclidine Scrn Negative (NEGATIVE) Ur Amphetamine Screen Negative (NEGATIVE) U Methamphetamines Scrn Negative (NEGATIVE) Urine MDMA Screen Negative (NEGATIVE) U Benzodiazepines Scrn Negative (NEGATIVE) Urine Cocaine Screen Negative (NEGATIVE) U Marijuana (THC) Screen Negative (NEGATIVE) SARS-CoV-2 RNA (MARTÍN) Negative (NEGATIVE) Meds: Medications Discontinued Medications Generic Name Dose Route Start Last Admin Trade Name Freq PRN Reason Stop Dose Admin Iopamidol 100 ml 06/20/21 18:29 06/20/21 19:04 Iopamidol 612 Mg/Ml 100 Ml Bottle IVPUSH 06/20/21 18:30 100 ml ONETIME ONE Administration Ondansetron HCl 4 mg 06/20/21 18:43 06/20/21 18:43 Ondansetron 4 Mg/2 Ml Sdv IVPUSH 06/20/21 18:44 Not Given ONETIME ONE Sodium Chloride 10 ml 06/20/21 17:21 Sodium Chloride 0.9% 10 Ml Syringe FLUSH ASDIRECTED PRN Keep Vein Open Sodium Chloride 10 ml 06/20/21 18:29 Sodium Chloride 0.9% 10 Ml Syringe FLUSH ASDIRECTED PRN Keep Vein Open - Radiology Interpretation Free Text/Narrative:: [facility] Final Radiology Report Call: [phone] assistance Online chat: [email or web address] Name: TYSON CRUZ Age: 40Years M Date: 06/20/2021 SSN: -- : [id number] Study: CT ABDOMEN PELVIS W CONT Requesting Physician: Yusuf Morales Images: 520 Addl Studies: Provided Clinical History: abd pn Contrast: With Contrast Medium: Isovue 300 Contrast Amount: 100 mL Contrast Method: Intravenous (IV) Page 1 of 2 PROCEDURE INFORMATION: Exam: CT Abdomen And Pelvis With Contrast Exam date and time: 06/20/2021 6:40 PM Age: 40 years old Clinical indication: Other: Upper abd pain bilaterally; Additional info: Abd pn TECHNIQUE: Imaging protocol: Computed tomography of the abdomen and pelvis with contrast. Total images: 520 Radiation optimization: All CT scans at this facility use at least one of these dose optimization techniques: automated exposure control; mA and/or kV adjustment per patient size (includes targeted exams where dose is matched to clinical indication); or iterative reconstruction. Contrast material: ISOVUE 300; Contrast volume: 100 ml; Contrast route: INTRAVENOUS (IV); COMPARISON: CT Abdomen Pelvis w Cont 08/26/2019 11:34 PM FINDINGS: Lungs: Visualized lung bases are clear. Heart: Heart size normal. Mediastinal space: The visualized distal esophagus is largely contracted without gross abnormality. Small fatty hiatal hernia unchanged. Liver: Mild fatty infiltration of the liver. Normal contour. No mass lesions. No intrahepatic biliary ductal dilatation. Gallbladder and bile ducts: Normal. No calcified stones. No ductal dilation. Pancreas: Normal. No inflammatory changes or ductal dilation. Spleen: Normal. No splenomegaly. Adrenal glands: Normal. No adrenal mass. Kidneys and ureters: No acute abnormalities. No hydronephrosis or hydroureter. No urinary tract stones are identified. There is a low-density circumscribed left renal cortical lesion suggesting renal cyst. No further imaging evaluation is required. Stomach and bowel: The stomach is largely contracted without gross abnormality. The small bowel is nondilated with no gross abnormality. Motion artifact limits the small bowel assessment in the lower abdomen. There is a moderate amount of stool distributed throughout the colon suggesting constipation. Appendix: The appendix is not identified. No gross secondary changes of acute appendicitis although motion artifact limits the assessment at the level of the cecum. Intraperitoneal space: No free fluid or air. Vasculature: Mild atherosclerotic aortoiliac calcification without aneurysm. Lymph nodes: No adenopathy. Urinary bladder: The urinary bladder is largely contracted without gross abnorm ality. Reproductive: Borderline mild prostate enlargement. Bones/joints: No acute osseous abnormalities. 10 mm right supra-acetabular bone island unchanged. Soft tissues: Unremarkable. IMPRESSION: 1. There is a moderate amount of stool distributed throughout the colon suggesting constipation. 2. Small fatty hiatal hernia unchanged. 3. Fatty liver. 4. Motion artifact produces mild-moderate exam limitation. 5. Additional nonemergent findings detailed above. COMMENTS: Consistent with the [place] [employer]'s Incidental Findings Committee white paper (J Am Karena Radiol 2018): Any incidental renal lesion less than 1 cm or classified as too small to characterize, or any incidental cystic renal lesion characterized as simple- appearing, is likely benign. No follow-up imaging is recommended for these lesions per consensus recommendations based on imaging criteria. Thank you for allowing us to participate in the care of your patient. Dictated and Authenticated by: Pablo Burgos MD 06/20/2021 8:16 PM Central Time ([place] & [place]) - Re-Assessments/Exams Free Text/Narrative Re-Assessment/Exam: 06/20/21 Care of patient assumed by proposal manager writer from Yusuf Morales PA-C at 1900. Findings of imaging and lab work reviewed with patient. Discussed supportive cares for constipation as well as red flag signs and symptoms which would warrant immediate reevaluation. Patient instructed to follow up with PCP in 5-7 days, or sooner as needed. Patient verbalized understanding and agreement with the plan of care. Departure - Departure Time of Disposition: 20:32 Condition: Good - Discharge Information *PRESCRIPTION DRUG MONITORING PROGRAM REVIEWED*: Not Applicable *COPY OF PRESCRIPTION DRUG MONITORING REPORT IN PATIENT MARIO ALBERTO: Not Applicable Sepsis Event Note (ED) - Focused Exam Vital Signs: Vital Signs Temp Pulse Resp BP Pulse Ox 06/20/21 20:30 98.9 F 78 20 128/75 97 06/20/21 17:19 98.0 F 78 18 133/81 97
[2021-06-20] MEDS ORDERED: Iopamidol 612 MG/ML 100 ML Bottle IVPUSH ONE (18:29)
[2021-06-20] MEDS ORDERED: Ondansetron 4 MG/2 ML SDV IVPUSH ONE (18:43)
--- NOTE | 2021-06-20 20:17 | CT ---
PROCEDURE INFORMATION: Exam: CT Abdomen And Pelvis With Contrast Exam date and time: 06/20/2021 6:40 PM Age: 40 years old Clinical indication: Other: Upper abd pain bilaterally; Additional info: Abd pn TECHNIQUE: Imaging protocol: Computed tomography of the abdomen and pelvis with contrast. Total images: 520 Radiation optimization: All CT scans at this facility use at least one of these dose optimization techniques: automated exposure control; mA and/or kV adjustment per patient size (includes targeted exams where dose is matched to clinical indication); or iterative reconstruction. Contrast material: ISOVUE 300; Contrast volume: 100 ml; Contrast route: INTRAVENOUS (IV); COMPARISON: CT Abdomen Pelvis w Cont 08/26/2019 11:34 PM FINDINGS: Lungs: Visualized lung bases are clear. Heart: Heart size normal. Mediastinal space: The visualized distal esophagus is largely contracted without gross abnormality. Small fatty hiatal hernia unchanged. Liver: Mild fatty infiltration of the liver. Normal contour. No mass lesions. No intrahepatic biliary ductal dilatation. Gallbladder and bile ducts: Normal. No calcified stones. No ductal dilation. Pancreas: Normal. No inflammatory changes or ductal dilation. Spleen: Normal. No splenomegaly. Adrenal glands: Normal. No adrenal mass. Kidneys and ureters: No acute abnormalities. No hydronephrosis or hydroureter. No urinary tract stones are identified. There is a low-density circumscribed left renal cortical lesion suggesting renal cyst. No further imaging evaluation is required. Stomach and bowel: The stomach is largely contracted without gross abnormality. The small bowel is nondilated with no gross abnormality. Motion artifact limits the small bowel assessment in the lower abdomen. There is a moderate amount of stool distributed throughout the colon suggesting constipation. Appendix: The appendix is not identified. No gross secondary changes of acute appendicitis although motion artifact limits the assessment at the level of the cecum. Intraperitoneal space: No free fluid or air. Vasculature: Mild atherosclerotic aortoiliac calcification without aneurysm. Lymph nodes: No adenopathy. Urinary bladder: The urinary bladder is largely contracted without gross abnormality. Reproductive: Borderline mild prostate enlargement. Bones/joints: No acute osseous abnormalities. 10 mm right supra-acetabular bone island unchanged. Soft tissues: Unremarkable. IMPRESSION: 1. There is a moderate amount of stool distributed throughout the colon suggesting constipation. 2. Small fatty hiatal hernia unchanged. 3. Fatty liver. 4. Motion artifact produces mild-moderate exam limitation. 5. Additional nonemergent findings detailed above. COMMENTS: Consistent with the [employer]'s Incidental Findings Committee white paper (J Am Karena Radiol 2018): Any incidental renal lesion less than 1 cm or classified as too small to characterize, or any incidental cystic renal lesion characterized as simple-appearing, is likely benign. No follow-up imaging is recommended for these lesions per consensus recommendations based on imaging criteria.
== END 2021-06-20 20:34 | disposition home or self-care (01) ==
LOC: DL.ED 15:55
DX: K44.9 Diaphragmatic hernia without obstruction or gangrene (principal); K59.01 Slow transit constipation; K76.0 Fatty (change of) liver, not elsewhere classified; K21.9 Gastro-esophageal reflux disease without esophagitis; E11.65 Type 2 diabetes mellitus with hyperglycemia; Z88.0 Allergy status to penicillin; Z79.82 Long term (current) use of aspirin; Z79.84 Long term (current) use of oral hypoglycemic drugs; Z79.899 Other long term (current) drug therapy; Z72.0 Tobacco use; Z20.822 Contact with and (suspected) exposure to COVID-19
CPT/HCPCS: 36415; 74177; 80053; 80305; 81003; 82150; 83605; 83690; 84100; 84443; 85025; 87635; 99284; Q9967; U0002

== ENCOUNTER 2023-09-21 19:51 | Emergency (ER) | payer BC, OTHER | END 2023-09-21 22:10 | disposition left against medical advice (07) | LOC: DL.ED 19:51 | DX: Z53.21 Procedure and treatment not carried out due to patient leaving prior to being seen by health care provider (principal) ==

== ENCOUNTER 2023-11-10 15:36 | Emergency (ER) | payer BC, OTHER ==
[2023-11-10] MEDS: cefTRIAXone 1 GM, Lidocaine 1% 2.1 ML IM ONE (16:54)
== END 2023-11-10 17:00 | disposition home or self-care (01) ==
LOC: DL.ED 15:36
DX: H66.002 Acute suppurative otitis media without spontaneous rupture of ear drum, left ear (principal); I10 Essential (primary) hypertension; E11.9 Type 2 diabetes mellitus without complications; Z88.0 Allergy status to penicillin; Z79.82 Long term (current) use of aspirin; Z79.84 Long term (current) use of oral hypoglycemic drugs; Z79.899 Other long term (current) drug therapy
CPT/HCPCS: 96372; 99282; 99284; J0696; J3490

== ENCOUNTER 2024-09-27 16:53 | Emergency (ER) | payer BC, OTHER ==
[2024-09-27] MEDS: Take Home: Doxycycline 100 MG Cap, 4 Cap Pack PO ONE (17:21)
== END 2024-09-27 17:24 | disposition home or self-care (01) ==
LOC: DL.ED 16:53
DX: J18.9 Pneumonia, unspecified organism (principal); Z79.899 Other long term (current) drug therapy; Z79.82 Long term (current) use of aspirin; Z88.0 Allergy status to penicillin
CPT/HCPCS: 99283; A9270

== ENCOUNTER 2024-11-07 23:48 | Emergency (ER) | payer BC, OTHER ==
[2024-11-08 00:13] LABS: BASOPHILS PERCENT AUTO 0.3 % (0.0-1.0); EOSINOPHILS PERCENT AUTO 1.4 % (1.0-3.0); HEMATOCRIT 43.4 % (40.0-54.0); HEMOGLOBIN 14.3 g/dL (14.0-18.0); LYMPHOCYTES PERCENT AUTO 28.5 % (20.5-50.1); MEAN CORPUSCULAR HGB CONC 32.9 g/dL (33.0-35.0); MONOCYTES PERCENT AUTO 7.5 % (2-8); NEUTROPHILS PERCENT AUTO 62.3 % (42.2-75.2); PLATELET COUNT,PLT 276 10^3/uL (150-450); RED BLOOD CELL COUNT 4.93 10^6/uL (4.6-6.2); WHITE BLOOD CELL COUNT,WBC 11.4 10^3/uL (5.0-10.0)
[2024-11-11 10:47] LABS: C.TRACHOMATIS BY TMA Negative (Negative); N.GONORRHOEAE BY TMA Negative (Negative); SOURCE URINE
== END 2024-11-08 00:52 | disposition home or self-care (01) ==
LOC: DL.ED 23:48
DX: K92.1 Melena (principal); R20.2 Paresthesia of skin; K59.01 Slow transit constipation; Z88.0 Allergy status to penicillin; Z79.82 Long term (current) use of aspirin; Z79.899 Other long term (current) drug therapy; Z79.84 Long term (current) use of oral hypoglycemic drugs; Z79.51 Long term (current) use of inhaled steroids
CPT/HCPCS: 36415; 82947; 85025; 87491; 87591; 99284

== ENCOUNTER 2025-02-08 23:05 | Emergency (ER) | payer BC, OTHER ==
[2025-02-09] MEDS: Levofloxacin 500 MG Tab PO ONE ×2 (01:10→01:36)
== END 2025-02-09 01:18 | disposition home or self-care (01) ==
LOC: DL.ED 23:05
DX: H66.92 Otitis media, unspecified, left ear (principal); H72.92 Unspecified perforation of tympanic membrane, left ear; F17.200 Nicotine dependence, unspecified, uncomplicated; Z88.0 Allergy status to penicillin; Z88.1 Allergy status to other antibiotic agents; Z79.82 Long term (current) use of aspirin; Z79.899 Other long term (current) drug therapy; Z79.84 Long term (current) use of oral hypoglycemic drugs
CPT/HCPCS: 99282; 99283; A9270